=== PATIENT | male | born 1985 | race Caucasian/White ===

== ENCOUNTER 2024-06-01 13:30 | Emergency (ER) | payer SELFPAY ==
[~2024-06-01] VITALS: Ht 188 cm; Wt 103.4 kg
[2024-06-01 13:30] VITALS: BP 149/80; PULSE 85; RESP 18; TEMP 98.6; O2SAT 95
[2024-06-01 14:55] VITALS: BP 129/66; PULSE 74; RESP 18; TEMP 98.6; O2SAT 95
== END 2024-06-01 15:21 | disposition home or self-care (01) ==
LOC: ER 13:30
DX: S82.61XA Displaced fracture of lateral malleolus of right fibula, initial encounter for closed fracture (principal); J45.909 Unspecified asthma, uncomplicated; Z88.6 Allergy status to analgesic agent; W19.XXXA Unspecified fall, initial encounter; Y93.89 Activity, other specified; Y92.89 Other specified places as the place of occurrence of the external cause; Y99.8 Other external cause status
CPT/HCPCS: 29515; 99284; 73590-RT; 73630-RT